=== PATIENT | male | born 1990 | race Caucasian/White ===

== ENCOUNTER 2018-10-30 15:12 | Emergency (ER) | payer OTHER ==
[2018-10-30 15:42] VITALS: BP 170/107
[2018-10-30] MEDS ORDERED: ORPH-16 PO (15:45)
[2018-10-30] MEDS ORDERED: PRED20TA PO (15:45)
[2018-10-30] MEDS ORDERED: MELO7.5T29 PO (15:45)
--- NOTE | 2018-10-30 15:45 | PHYS DOC ---
Past History Past Medical History: Other (back pain) Past Surgical History: No Surgical History Smoking: Non-smoker Alcohol Use: Occasionally Drug Use: None Adult General Chief Complaint Chief Complaint: BACK PAIN - NO INJURY HPI HPI Patient is a 27-year-old male presents with back pain. This is been a long-s tanding issue. He has had previous MRI and had dry needling performed yesterday. He is not currently on any medication. He had no relief from the dry needling. No loss of bowel or bladder control. No injectable drug use. No fever. No new trauma. Increased pain with movement. Pain is severe. 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.[] Review of Systems Review of Systems Constitutional: Denies fever or chills [] Eyes: Denies change in visual acuity, redness, or eye pain [] HENT: Denies nasal congestion or sore throat [] Respiratory: Denies cough or shortness of breath [] Cardiovascular: No chest pain or palpitations[] GI: Denies abdominal pain, nausea, vomiting, bloody stools or diarrhea [] : Denies dysuria or hematuria [] Musculoskeletal: History of present illness[] Integument: Denies rash or skin lesions [] Neurologic: Denies headache, focal weakness or sensory changes [] Endocrine: Denies polyuria or polydipsia [] All other systems were reviewed and found to be within normal limits, except as documented in this note. Physical Exam Physical Exam Constitutional: Well developed, well nourished, mild discomfort, non-toxic appearance. [] HENT: Normocephalic, atraumatic, bilateral external ears normal, oropharynx moist, no oral exudates, nose normal. [] Eyes: PERRLA, EOMI, conjunctiva normal, no discharge. [] Neck: Normal range of motion, no tenderness, supple, no stridor. [] Cardiovascular:Heart rate regular rhythm, no murmur [] Lungs & Thorax: Bilateral breath sounds clear to auscultation [] Abdomen: Bowel sounds normal, soft, no tenderness, no masses, no pulsatile masses. [] Skin: Warm, dry, no erythema, no rash. [] Back: Bilateral lower back tenderness to palpation in the paraspinal muscle region. Decreased forward bending. There is no midline tenderness. Normal side bend and rotation. Normal gait. Negative Rolf's signs., no CVA tenderness. [] Extremities: No tenderness, no cyanosis, no clubbing, ROM intact, no edema. [] Neurologic: Alert and oriented X 3, normal motor function, normal sensory function, no focal deficits noted. [] Psychologic: Affect normal, judgement normal, mood normal. [] EKG EKG [] Radiology/Procedures Radiology/Procedures [] Course & Med Decision Making Course & Med Decision Making Pertinent Labs and Imaging studies reviewed. (See chart for details) Medical decision making: There is no evidence of cauda equina syndrome, we will attempt outpatient pain management. Will also add muscle relaxers. There is no evidence of fracture dislocation. Do not believe a cord compressing abscess is present.[] Dragon Disclaimer Dragon Disclaimer This electronic medical record was generated, in whole or in part, using a voice recognition dictation system. Departure Departure: Impression: Primary Impression: Back pain Disposition: HOME, SELF-CARE Condition: IMPROVED Referrals: KRISTAL ANDERSON PA-C (PCP) Follow-up in 2 days Patient Instructions: Low Back Strain with Rehab[facility] Additional Instructions: Follow-up with your regular doctor in 2 days. Apply warm compresses to your low back 4 times a day for 15 minutes at a time. Return to the ER if worsening pain, loss of bowel or bladder control, fever of more than 101�, or any other concerns. Scripts Prednisone (PREDNISONE) 20 Mg Tablet 20 MG PO as directed for inflammation, #20 TAB 3 tablets daily on days 1, 2, and 3 2 tablets daily on days 4, 5, and 6 1 tablet daily on days 7, 8, and 9 Half tablet daily on days 10 through 13 Prov: ROBBY ALBA DO 10/30/18 Orphenadrine Citrate (ORPHENADRINE CITRATE) 100 Mg Tablet.er 100 MG PO BID for BACK PAIN, #20 TAB.SR Prov: ROBBY ALBA DO 10/30/18 Meloxicam (MELOXICAM) 7.5 Mg Tablet 7.5 MG PO DAILY for PAIN, #20 TAB Prov: ROBBY ALBA DO 10/30/18 Problem Qualifiers Primary Impression: Back pain Back pain location: low back pain Chronicity: unspecified Back pain laterality: bilateral Sciatica presence: unspecified whether sciatica present Qualified Codes: M54.5 - Low back pain ROBBY ALBA DO Oct 30, 2018 15:45
== END 2018-10-30 15:55 | disposition home or self-care (01) ==
LOC: ER 15:12
DX: M54.5 Low back pain (principal)
CPT/HCPCS: 99283

== ENCOUNTER 2018-12-03 11:43 | Emergency (ER) | payer OTHER ==
[~2018-12-03 11:43] MED LIST: MELO7.5T29 PO; ORPH-16 PO; PRED20TA PO
--- NOTE | 2018-12-03 12:41 | PHYS DOC ---
Past History Past Medical History: No Pertinent History, Other Past Surgical History: No Surgical History Smoking: Non-smoker Alcohol Use: Occasionally Drug Use: None Adult General Chief Complaint Chief Complaint: LACERATION/AVULSION [facility] HPI Patient is a 27-year-old male who presents after cutting his right wrist on some razor wire. Patient states that he accidentally contacted the razor wire when he was getting up from a seated position and extended his arm out. He reports pain as mild. He states that bleeding quickly stopped. He denies any other injuries and has no loss of sensation or motor function.[] Review of Systems Review of Systems Constitutional: Denies fever or chills [] Respiratory: Denies cough or shortness of breath [] Cardiovascular: No additional information not addressed in HPI [] GI: Denies abdominal pain, nausea, vomiting, bloody stools or diarrhea [] Integument: Positive laceration right wrist[] Neurologic: Denies headache, focal weakness or sensory changes [] Allergies Allergies Allergies Coded Allergies Type Severity Reaction Last Updated Verified No Known Drug Allergies 12/03/18 No Physical Exam Physical Exam Constitutional: Well developed, well nourished, no acute distress, non-toxic appearance. [] Neck: Normal range of motion, no tenderness, supple, no stridor. [] Cardiovascular: Regular rate and rhythm[] Lungs & Thorax: Bilateral breath sounds clear to auscultation [] Skin: There is a 4 similar laceration to the dorsal lateral aspect of the right wrist extending into subcutaneous tissue. Margins are sharp. Laceration is linear. Patient is neurovascularly intact distal to the wound and there is no tendon/ligamentous involvement.. [] Neurologic: Alert and oriented X 3, no focal deficits noted. [] Current Patient Data Vital Signs Vital Signs Date Time Temp Pulse Resp B/P (MAP) Pulse Ox O2 Delivery O2 Flow Rate FiO2 12/03/18 11:45 98.1 80 18 99 Room Air EKG EKG [] Radiology/Procedures Radiology/Procedures [] Course & Med Decision Making Course & Med Decision Making Pertinent Labs and Imaging studies reviewed. (See chart for details) Laceration Repair by me: Anesthesia: 1% lidocaine locally Location: Dorsal aspect of right wrist Tendon/Joint/Nerves: No injury Foreign body: None detected after copious irrigation and exploration Technique: A total of 13 Simple Interrupted Sutures were placed utilizing 4-0 Ethilon suture material area Complexity: No subcutaneous sutures/mucosal repair/edge excision Post Closure Length: 4 cm Patient's bleeding was easily controlled in the department and there is no indication of anemia. No evidence of compartment syndrome, neurologic injury, vascular injury, open joint, tendon laceration, or foreign body. Patient is appropriate for outpatient follow up. 48 hour wound check. Scar minimization instructions given. Dragon Disclaimer Dragon Disclaimer This electronic medical record was generated, in whole or in part, using a voice recognition dictation system. Departure Departure: Impression: Primary Impression: Laceration of right wrist Disposition: HOME, SELF-CARE Condition: STABLE Referrals: PCP,NO (PCP) Patient Instructions: Laceration Care, Adult Problem Qualifiers Primary Impression: Laceration of right wrist Encounter type: initial encounter Qualified Codes: S61.511A - Laceration without foreign body of right wrist, initial encounter LUIS ARMANDO PERSON Jr., DO Dec 03, 2018 12:41
[2018-12-03 12:48] VITALS: BP 142/91
== END 2018-12-03 12:48 | disposition home or self-care (01) ==
LOC: ER 11:43
DX: S61.511A Laceration without foreign body of right wrist, initial encounter (principal); W26.8XXA Contact with other sharp object(s), not elsewhere classified, initial encounter; Y93.89 Activity, other specified; Y92.89 Other specified places as the place of occurrence of the external cause; Y99.8 Other external cause status
CPT/HCPCS: 12002; 99283